=== PATIENT | male | born 1970 | race Caucasian/White ===

== ENCOUNTER 2024-06-05 16:33 | Emergency (ER) | payer MEDICAID, SELFPAY ==
[2024-06-05 16:34] VITALS: BP 151/86; PULSE 95; RESP 18; TEMP 36.1; O2SAT 100; BMI 18.9
--- NOTE | 2024-06-05 16:46 | EDS_ITS ---
HPI History of Present Illness Chief Complaint: Lower Extremity Injury Narrative Narrative: 53-year-old male presents with pain and swelling of his left ankle for the past week. He states he has a wound on the area that never healed. He relates history that around 8 months ago, he had surgery at the [facility] where they did open reduction and internal fixation of his left ankle. Over the last week, said pain and swelling and redness lateral to the open wound that never healed fully. He denies any fevers but states he has been chilled. The area has been calm swollen and red. PFSH PFS Home Medications ?Medication ?Instructions ?Recorded ?Last Taken ?Type aspirin 81 mg chewable tablet 1 tab PO DAILY 06/05/24 Unknown History cholecalciferol (vitamin D3) 25 25 mcg PO DAILY 06/05/24 Unknown History mcg (1,000 unit) capsule Allergy/AdvReac Type Severity Reaction Status Date / Time No Known Allergies Allergy Verified 06/05/24 16:34 Surgical History History of ankle surgery Social History Smoking Status: Current every day smoker tobacco type: cigarettes ROS ROS ED ROS Narrative Constitutional: No fever, positive chills. HEENT: No sore throat. No neck pain. No loss of vision. No rhinorrhea. Cardiovascular: No chest pain. No palpitations. No pedal edema. Respiratory: No cough, no shortness of breath. Abdominal: No abdominal pain. No nausea. No vomiting. Genitourinary: No dysuria. No hematuria. Musculoskeletal: No myalgias. Left ankle pain and swelling. Neurologic: No headaches. No dizziness. No lightheadedness. Skin: No rash. Positive change in color. Psychiatric: No depression. No anxiety. EXAM Physical Exam Narrative Exam Narrative: Afebrile. Vital signs noted. HEENT: Normocephalic. Atraumatic. PERRL, EOMI. Neck soft and supple. No point tenderness or step off. Cardiovascular: Regular rate and rhythm. No murmurs, rubs, or gallops appreciated. Respiratory: No tachypnea. Lungs clear to auscultation bilaterally. Gastrointestinal: Abdomen soft, nontender, with normoactive bowel sounds. No rebound or guarding. Neurological: Awake. Alert. Nonfocal, nonlateralizing. Skin: No rash. Positive erythema distal fibula. Positive open wound medial tibia with exposed orthopedic hardware, clear drainage. No pallor. Musculoskeletal: Positive diffuse swelling left ankle with open wound on the medial aspect. Positive redness over dorsum of left ankle crease and more proximal. Palpable dorsalis pedis pulse. Const Vital Signs: 06/05/24 16:34 06/05/24 17:21 Temperature 97 F L Temperature Source Temporal Pulse Rate 95 76 Respiratory Rate 18 16 Blood Pressure 151/86 H 139/87 H Blood Pressure Mean 107 104 Pulse Ox 100 98 Oxygen Delivery Method Room Air Room Air MDM MDM MDM Narrative Medical decision making narrative: Differential diagnosis includes cellulitis versus infected hardware versus loosening of hardware. Laboratory work will be obtained. I will also obtain an x-ray of the left ankle as well. X-rays of the left ankle interpreted by myself independently shows possible acute on chronic fracture of the distal fibula. I reviewed his laboratory work and he has an elevated white count of 14.9 with hemoglobin 13.4, hematocrit 41.2, platelet count elevated 470 which may be more of an acute phase reactant. While his ESR is 20, C-reactive protein is elevated at 154. He has a low sodium of 130 and potassium 3.2, chloride 97. Glucose is appropriately elevated at 135 with normal BUN and normal creatinine. I reviewed the radiology report of the left ankle and there is hardware intact but it does comment on the acute on chronic fracture of the distal fibula. As he has exposed hardware in his open wound that is chronic, and a new fracture, he was started on Zosyn and vancomycin with suspicion for cellulitis or even infected hardware given his swelling. I discussed the patient with the [facility] transfer line and he has been accepted by orthopedics. He is currently awaiting a bed. He was given morphine and ondansetron for analgesia. He will be placed in a walking boot as well for transfer. Patient is in stable condition. Lab Data Attestation: I reviewed the patient's lab results. Labs: Laboratory Results - last 24 hr 06/05/24 16:50 WBC 14.9 H RBC 4.46 L Hgb 13.4 Hct 41.2 MCV 92.4 MCH 30.0 MCHC 32.5 RDW Std Deviation 40.3 RDW Coeff of [place] 11.9 Plt Count 470 H MPV 9.0 Immature Gran % (Auto) 0.700 Neut % (Auto) 81.4 H Lymph % (Auto) 7.8 L [place] % (Auto) 8.9 Eos % (Auto) 0.7 Baso % (Auto) 0.5 Absolute Neuts (auto) 12.1 H Absolute Lymphs (auto) 1.16 Nucleated RBC % 0 ESR 20 Sodium 130 L Potassium 3.2 L Chloride 97 L Carbon Dioxide 28.0 Anion Gap 5 BUN 10 Creatinine 0.82 Estim Creat Clear Calc 84.78 Est GFR (MDRD) Af Amer 126 Est GFR (MDRD) Non-Af 104 BUN/Creatinine Ratio 12.2 Glucose 135 H Calcium 9.2 Total Bilirubin 0.80 AST 7 L ALT 14 L Alkaline Phosphatase 89 C-React Prot Ext Range 154.00 H Total Protein 8.3 H Albumin 3.6 Globulin 4.7 H Albumin/Globulin Ratio 0.8 L Radiography Diagnostic Testing: Clinical Impression(s) from Imaging Studies Ankle X-Ray 06/05/24 16:55 IMPRESSION: Possible acute on chronic nondisplaced fracture of the distal fibula. Chronic fracture deformity of the tibia status post ORIF with plate and screw constructs and complete healing. Electronically Signed: Joao Short MD at 17:46 EDT , Discharge Plan Triage Chief Complaint: Lower Extremity Injury ED Provider: Jose Adrian Dx/Rx/DC Orders Clinical Impression: Fracture, fibula, Exposed orthopaedic hardware, Cellulitis Prescriptions: No Action aspirin 81 mg tablet,chewable 1 tab PO DAILY cholecalciferol (vitamin D3) 25 mcg (1,000 unit) capsule 25 mcg PO DAILY Primary Care Provider: Ashley Tran Referrals: Ashley Tran, DATA ANALYST REPORT WRITER-C [Primary Care Provider] - Print Language: Kiswahili Disposition Disposition: Acute Care Hospital Discharge Location: [facility]
--- NOTE | 2024-06-05 16:55 | RAD_ITS ---
INDICATION: pain, swelling, previous surgery EXAMINATION/TECHNIQUE: X-RAY - LEFT XR Ankle Min 3 Views COMPARISON: None. FINDINGS: Chronic fracture deformity of the tibia status post ORIF with plate and screw constructs and complete healing. Possible acute on chronic nondisplaced fracture of the distal fibula. No blastic or lytic lesions. Mild degenerative changes. Soft tissue swelling of the ankle. RAD/Ankle min 3 Views IMPRESSION: Possible acute on chronic nondisplaced fracture of the distal fibula. Chronic fracture deformity of the tibia status post ORIF with plate and screw constructs and complete healing. Electronically Signed: Joao Short MD at 17:46 EDT ,
[2024-06-05 17:06] LABS: Absolute Lymphocyte Count 1.16 X10^3/uL (0.83-4.51); Absolute Neutrophil Count 12.1 X10^3/uL (2.0-7.7); Basophil# 0.08 X10^3/uL; Basophil% 0.5 % (0-1); Eosinophils% 0.7 % (0-5); Hematocrit 41.2 % (40-54); Hemoglobin 13.4 g/dL (13.0-16.5); Lymphocyte # 1.16 X10^3/ul (0.83-4.51); Lymphocyte % 7.8 % (19-41); Mean Corp Hgb Conc 32.5 g/dL (32-36); Mean Corpuscular Volume 92.4 fL (80-94); Monocyte# 1.33 X10^3/uL; Monocyte% 8.9 % (0-10); NRBC Flagged by Analyzer 0 % (0-5); Neutrophil # 12.12 X10^3/uL (2.7-7.7); Neutrophil % 81.4 % (47-70); Platelet Count 470 K/mm3 (150-450); RBC Distribution Width CV 11.9 % (11.6-14.6); RBC Distribution Width SD 40.3 fl (35.1-43.9); Red Blood Count 4.46 M/mm3 (4.6-6.2); White Blood Count 14.9 K/mm3 (4.4-11.0)
[2024-06-05 17:14] LABS: Erythrocyte Sedimentation Rate 20 mm/hr (0-20)
[2024-06-05] MEDS: Ondansetron 4 MG/2 ML Vial IV (17:18)
[2024-06-05] MEDS: Morphine 4 MG/ML Syringe IV ×2 (17:18→22:24)
[2024-06-05 17:21] VITALS: BP 139/87; PULSE 76; RESP 16; O2SAT 98
[2024-06-05 17:22] LABS: ALB/GLOB Ratio 0.8 RATIO (0.9-2.4); AST(SGOT) 7 U/L (15-37); Alanine Aminotransfer ALT/SGPT 14 U/L (16-61); Albumin, Serum 3.6 g/dL (3.2-5.0); Alkaline Phosphatase 89 U/L (45-117); Anion Gap 5 (5-15); BUN 10 mg/dL (7-18); BUN/Creat Ratio 12.2 RATIO (10-20); Calcium,Total 9.2 mg/dL (8.5-10.1); Chloride 97 mmol/L (98-107); Creatinine, Serum 0.82 mg/dL (0.70-1.30); EST Glomerular Filtration Rate 104 mL/min (>60); Est Glom Filt Rate - Afr Amer 126 mL/min (>60); Estimated Creatinine Clearance 84.78 ml/min; Globulin 4.7 g/dL (2.2-4.2); Glucose 135 mg/dL (74-106); Potassium 3.2 mmol/L (3.5-5.1); Protein, Total 8.3 g/dL (6.4-8.2); Sodium Level 130 mmol/L (136-145)
[2024-06-05] MEDS: Piperacil/Tazobactam 3.375 GM in 0.9% Normal Saline (50mL MB+) 50 ML IV (18:42)
[2024-06-05] MEDS: Vancomycin HCl 750 MG in 0.9% Normal Saline (250mL Bag) 250 ML 250 MG IV (19:35)
[2024-06-05 21:00] VITALS: BP 128/87; PULSE 91; RESP 18; O2SAT 98
[2024-06-05 23:38] VITALS: BP 122/83; PULSE 75; RESP 18; TEMP 36.2; O2SAT 96
== END 2024-06-05 23:35 | disposition short-term general hospital (02) ==
PROVIDERS: Emergency Provider Emergency Medicine; PCP Nurse Practitioner Family; Visit Provider Emergency Medicine
DX: S82.832B Other fracture of upper and lower end of left fibula, initial encounter for open fracture type I or II (principal); F17.210 Nicotine dependence, cigarettes, uncomplicated; L03.116 Cellulitis of left lower limb; Z96.662 Presence of left artificial ankle joint
CPT/HCPCS: 73610; 80053; 85025; 85652; 86140; 96365; 96375; 96376; 99285; J7050; A4216; J2405